=== PATIENT | female | born 1995 ===

== ENCOUNTER 2018-04-15 11:03 | Emergency (ER) | payer MEDICAID ==
[2018-04-15 11:09] VITALS: O2SAT 100
[2018-04-15 11:29] LABS: HCG,QUALITATIVE URINE NEGATIVE (NEGATIVE)
[2018-04-15 11:38] LABS: SQUAMOUS EPITHIAL 2 /hpf (0-5); URINE BILIRUBIN NEGATIVE (NEGATIVE); URINE BLOOD 2+ (NEGATIVE); URINE CLARITY Clear (Clear); URINE COLOR Yellow (YELLOW); URINE GLUCOSE (UA) NORMAL (Normal); URINE LEUKOCYTE ESTERASE 3+ Leu/uL (Negative); URINE PROTEIN NEGATIVE (NEGATIVE); URINE UROBILINOGEN NORMAL mg/dL (0.2-1.0)
[2018-04-15] MEDS ORDERED: Sodium Chloride 0.9% 1,000 ML IV STA (12:04)
[2018-04-15] MEDS ORDERED: Sodium Chloride 0.9% 1,000 ML ONE (12:11)
[2018-04-15] MEDS ORDERED: cefTRIAXone IV 1 gm in Dextros 50 ML IVPB ONE (12:11)
--- NOTE | 2018-04-15 12:15 | C.PDOC ---
History Of Present Illness Patient c/o dysuria, right flank pain, low grade fever x 4 days. Time Seen by Provider: 04/15/18 11:34 Chief Complaint (Nursing): Back Pain History Per: Patient History/Exam Limitations: no limitations Onset/Duration Of Symptoms: Days (4) Current Symptoms Are (Timing): Still Present Quality Of Discomfort: Dull Severity: Moderate Pain Scale Rating Of: 5 Previous Symptoms: None Associated Symptoms: Other (dysuria, fever) Exacerbating Factor(s): Nothing Recent travel outside of the [place]: No Past Medical History Reviewed: Historical Data, Nursing Documentation, Vital Signs Vital Signs: Last Vital Signs Temp 100 F H 04/15/18 13:29 Pulse 98 H 04/15/18 13:29 Resp 16 04/15/18 13:29 BP 105/60 04/15/18 13:29 Pulse Ox 100 04/15/18 13:29 - Medical History PMH: No Chronic Diseases Family History: States: Unknown Family Hx - Social History Hx Tobacco Use: No Hx Alcohol Use: No Hx Substance Use: No - Immunization History Hx Tetanus Toxoid Vaccination: No Hx Influenza Vaccination: No Hx Pneumococcal Vaccination: No Review Of Systems Except As Marked, All Systems Reviewed And Found Negative. Constitutional: Positive for: Fever, Weakness Gastrointestinal: Negative for: Nausea, Vomiting, Abdominal Pain Genitourinary: Positive for: Dysuria, Frequency Physical Exam - Physical Exam Appears: Well, Non-toxic, No Acute Distress Skin: Normal Color, Warm Head: Atraumatic, Normacephalic Eye(s): bilateral: Normal Inspection Chest: Symmetrical, No Deformity, No Tenderness Cardiovascular: Rhythm Regular Respiratory: Normal Breath Sounds, No Wheezing Gastrointestinal/Abdominal: Soft, Tenderness Back: CVA Tenderness (right) Extremity: Normal ROM, No Swelling Neurological/Psych: Oriented x3, Normal Speech, Normal Cognition ED Course And Treatment - Laboratory Results Result Diagrams: 04/15/18 12:25 04/15/18 12:25 O2 Sat by Pulse Oximetry: 100 Progress Note: UA pos for UTI, patient has pain and tenderness of the right flak area, low grade fever. S/S are consistant with pyelonephritis. Labs, IVF and Rocephin started. Disposition - Disposition Referrals: Indira Pérez MD [Medical Doctor] - Disposition: HOME/ ROUTINE Disposition Time: 13:30 Condition: STABLE Additional Instructions: Follow up with PMD within 1-2 days. Return to ED if feel worse. Prescriptions: Ciprofloxacin [Cipro] 1 tab PO BID #14 tab Ibuprofen [Motrin Tab] 600 mg PO Q8 #30 tab Instructions: Kidney Infection (DC) Forms: [employer] (Upper Sorbian) - Clinical Impression Clinical Impression: Pyelonephritis
[2018-04-15 12:29] LABS: BASO % 0.3 % (0.0-2.0); EOS % 0.1 % (0.0-4.0); HEMOGLOBIN 13.8 g/dL (11.0-16.0); LYMPH # 1.1 K/uL (1.0-4.3); LYMPH % 11.6 % (20.0-40.0); MEAN CELL VOLUME 89.8 fL (81.0-99.0); MEAN CORPUSCULAR HEMOGLOBIN 31.7 pg (27.0-31.0); MEAN CORPUSCULAR HGB CONC 35.3 g/dL (33.0-37.0); MEAN PLATELET VOLUME 9.8 fL (7.2-11.7); MONO # 0.4 K/uL (0.0-0.8); MONO % 4.7 % (0.0-10.0); NEUT # 7.9 K/uL (1.8-7.0); NEUT % 83.3 % (50.0-75.0); NRBC % 0.1 % (0.0-2.0); RBC 4.34 Mil/uL (3.80-5.20); RED CELL DISTRIBUTION WIDTH 12.6 % (11.5-14.5); WHITE BLOOD COUNT 9.5 K/uL (4.8-10.8)
[2018-04-15 12:42] LABS: CALCIUM 9.3 mg/dl (8.6-10.4); GFR AFRICAN-AMERICAN > 60; GFR NON-AFRICAN AMERICAN > 60
[2018-04-15 12:47] LABS: ALB/GLOB RATIO 1.3 (1.0-2.1); ALBUMIN 4.7 g/dL (3.5-5.0); ALT/SGPT 14 U/L (9-52); AST/SGOT 29 U/L (14-36); BLOOD UREA NITROGEN 6 mg/dL (7-17)
[2018-04-15 13:30] VITALS: BP 105/60; PULSE 98; RESP 16; TEMP 100
== END 2018-04-15 14:36 | disposition home or self-care (01) ==
LOC: C.ER 11:03
DX: N12 Tubulo-interstitial nephritis, not specified as acute or chronic (principal)
CPT/HCPCS: 80053; 81001; 84703; 85025; 87040; 87086; 96365; 96375; 99284; J0696; J1885; J7030